=== PATIENT | female | born 1945 | race Hispanic/Latino ===

== ENCOUNTER 2018-04-23 22:31 | Emergency (ER) | payer MEDICARE ==
[2018-04-23] MEDS ORDERED: Ibuprofen 600 MG TAB ONE (22:51)
[2018-04-23] MEDS ORDERED: HYDROcodone/Acetaminophen 5/325 mg Tablet ONE (22:51)
--- NOTE | 2018-04-24 00:08 | RAD ---
TWO VIEWS RIGHT HIP 04/23/18 HISTORY: Trauma. Right hip pain. FINDINGS: There is no evidence of a fracture or dislocation. Mild degenerative changes are seen at the pubic sy mphysis. IMPRESSION: No acute osseous abnormality. POS: [facility]
--- NOTE | 2018-04-24 00:13 | RAD ---
FOUR VIEWS RIGHT KNEE: 04/23/18 HISTORY: Trauma, right knee pain. FINDINGS: There is tricompartment osteophytosis. There is narrowing of the medial joint compartment. No fractur e or dislocation is seen. There is a moderate sized joint effusion in a suprapatellar location. Vascu lar calcifications are seen posterior to the knee. IMPRESSION: 1. Osteoarthritis. 2. Moderate sized joint effusion. If there is concern for internal derangement, MRI right knee o n nonemergent basis is recommended. POS: [facility]
--- NOTE | 2018-04-24 00:16 | RAD ---
SUNRISE VIEW RIGHT KNEE: 04/23/18 HISTORY: Fell, right knee pain. FINDINGS/IMPRESSION: Osteophytosis is seen involving the patellofemoral joint with subchondral cystic changes seen. Please see four views right knee also obtained on this date for further details. POS: [facility]
--- NOTE | 2018-04-24 13:55 | RAD ---
THREE VIEWS RIGHT ANKLE: 04/23/18 HISTORY: Trauma, right ankle pain. FINDINGS: The ankle mortise is congruent. No fracture or dislocation is seen. A plantar calcaneal enthesophyte is identified. IMPRESSION: No acute osseous abnormality. POS: [facility]
== END 2018-04-24 00:24 | disposition home or self-care (01) ==
LOC: SCSER 22:31
DX: M25.461 Effusion, right knee (principal); M25.571 Pain in right ankle and joints of right foot; M25.551 Pain in right hip; I10 Essential (primary) hypertension; E11.9 Type 2 diabetes mellitus without complications; E03.9 Hypothyroidism, unspecified; Z79.899 Other long term (current) drug therapy; W19.XXXA Unspecified fall, initial encounter

== ENCOUNTER 2018-04-26 23:21 | Emergency (ER) | payer MEDICARE ==
[2018-04-27 00:35] LABS: INR-International Normal Ratio 1.1; PTT 25.9 SEC (22.9-36.1)
[2018-04-27 00:44] LABS: Band 2 % (5-11); Hemoglobin 11.7 g/dL (12.0-16.0); Lymphocytes 7 % (21-51); MDiff Complete? YES; Mean Corpuscular HGB CONC 35.2 g/dL (32.0-36.0); Mean Corpuscular Volume 85.1 fL (78.0-98.0); Mean Platelet Volume 10.9 fL (7.4-10.4); Monocytes 7 % (0-10); Neutrophil 84 % (42-75); Platelet Count 203 thou/uL (130-400); RBC Distribution Width 14.3 % (11.5-14.5); Red Blood Cell (RBC) Count 3.91 mill/uL (4.20-5.40); White Blood Cell (WBC) Count 14.5 thou/uL (4.8-10.8)
[2018-04-27 00:45] LABS: ALT (SGPT) 19 U/L (8-55); AST (SGOT) 26 U/L (5-34); Alkaline Phosphatase 73 U/L (40-150); Anion Gap 16 mmol/L (10-20); BUN (Urea Nitrogen) 36 mg/dL (9.8-20.1); Bilirubin, Total 0.9 mg/dL (0.2-1.2); Calc. Creatinine Clearance 0 mL/min (70-130); Calcium 10.2 mg/dL (7.8-10.44); Carbon Dioxide 26 mmol/L (23-31); Chloride 96 mmol/L (98-107); Estimated GFR-MDRD 51; Glucose 292 mg/dL (83-110); Potassium 3.7 mmol/L (3.5-5.1); Sodium 134 mmol/L (136-145)
--- NOTE | 2018-04-27 09:10 | CT ---
PRELIMINARY REPORT/[facility]/EMERGENTY AFTER-HOURS PROCEDURE CT Head Without Intravenous Contrast EXAM DATE/TIME: 04/27/2018 12:16 AM CLINICAL HISTORY: 72 years old, female; Signs and symptoms; Weakness, extremity; Right; Patient HX: Fall three days ago with residual right sided weakness TECHNIQUE: Axial computed tomography images of the head/brain without intravenous contrast. All CT scans at this facility use at least one of these dose optimization techniques: automated expos ure control; mA and/or kV adjustment per patient size (includes targeted exams where dose is matched to clinical indication); or iterative reconstruction. COMPARISON: No relevant prior studies available. FINDINGS: Brain: No evidence of acute intracranial hemorrhage, extraxial fluid or midline shift. Mild low densi ty changes within the white matter bilaterally. Cerebellum atrophic; otherwise, posterior fossa struc tures within normal limits. Ventricles: Mild prominence of the cerebral sulci and ventricles. Bones/joints: Normal. No acute fracture. Sinuses: Normal as visualized. No acute sinusitis. Mastoid air cells: Normal as visualized. No mastoid effusion. Soft tissues: Normal. IMPRESSION: 1. No evidence of acute intracranial hemorrhage, extraxial fluid or midline shift. 2. Mild cerebral atrophy. 3. 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 Thank you for allowing us to participate in the care of your patient. Dictated and Authenticated by: Chris Browning MD 04/27/2018 1:06 AM Central Time ([place] & [place]) FINAL REPORT CT HEAD WITHOUT CONTRAST: No acute intracranial abnormality. I am in agreement with the preliminary report. Code QA. POS: [facility]
== END 2018-04-27 01:53 | disposition home or self-care (01) ==
LOC: SCSER 23:21
DX: R53.1 Weakness (principal); R51 Headache; T38.0X5A Adverse effect of glucocorticoids and synthetic analogues, initial encounter; D64.9 Anemia, unspecified; M25.561 Pain in right knee; E11.65 Type 2 diabetes mellitus with hyperglycemia; D72.829 Elevated white blood cell count, unspecified; I10 Essential (primary) hypertension; E03.9 Hypothyroidism, unspecified
CPT/HCPCS: 36415; 36416; 70450; 80053; 85025; 85610; 85730; 93005

== ENCOUNTER 2018-05-02 10:55 | Outpatient (CLI) | payer MEDICARE ==
--- NOTE | 2018-05-02 16:07 | ULT ---
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 COMPARISON: None. TECHNIQUE: Goddard-scale, color-flow, Doppler imaging, and spectral wave-form analysis was performed of the carotid and vertebral arteries. FINDINGS: RIGHT CAROTID: No significant atherosclerotic disease. Peak systolic velocity of the common carotid artery is 81 cm per second. Peak systolic velocity of the internal carotid artery is 71 cm per seco nd. The systolic ICA to CCA ratio is 0.9. LEFT CAROTID: No significant atherosclerotic disease. Peak systolic velocity of the common carotid artery is 88 cm per second. Peak systolic velocity of the internal carotid artery is 121 cm per seco nd. The systolic ICA to CCA ratio is 1.3. There is elevation of the peak systolic velocity of both external carotid arteries, measuring 150 cm per second. Antegrade flow in the right and left vertebral arteries. IMPRESSION: No sonographic evidence of hemodynamically significant stenosis. POS: [facility]
== END 2018-05-02 10:56 | disposition home or self-care (01) ==
LOC: BICULT 10:55
PROVIDERS: ATTEND Family Medicine
DX: I66.02 Occlusion and stenosis of left middle cerebral artery (principal); D64.9 Anemia, unspecified
CPT/HCPCS: 93880

== ENCOUNTER 2019-08-19 13:43 | Outpatient (CLI) | payer MEDICARE ==
--- NOTE | 2019-08-19 14:25 | MMO ---
Bilateral MAMMO Bilat Screen [facility]. CLINICAL HISTORY: Patient is 73 years old and is seen for screening. The patient has no family history of breast cancer. The patient has no personal history of cancer. VIEWS: The views performed were: bilateral craniocaudal with tomosynthesis and bilateral mediolateral oblique with tomosynthesis. FILMS COMPARED: The present examination has been compared to prior imaging studies performed at [facility] on 04/28/2014, 05/24/2015, 05/28/2016 and 05/14/2017. This study has been interpreted with the assistance of computer-aided detection. MAMMOGRAM FINDINGS: There are scattered fibroglandular densities. There are no suspicious masses, suspicious calcifications, or new areas of architectural distortion. IMPRESSION: THERE IS NO MAMMOGRAPHIC EVIDENCE OF MALIGNANCY. A ROUTINE FOLLOW-UP MAMMOGRAM IN 1 YEAR IS RECOMMENDED. THE RESULTS OF THIS EXAM WERE SENT TO THE PATIENT. ACR BI-RADS Category 1 - Negative MAMMOGRAPHY NOTE: 1. A negative mammogram report should not delay a biopsy if a dominant of clinically suspicious mass is present. 2. Approximately 10% to 15% of breast cancers are not detected by mammography. 3. Adenosis and dense breasts may obscure an underlying neoplasm. Reported by: KATRIN ABREU MD Electonically Signed: [id number]
== END 2019-08-19 13:44 | disposition home or self-care (01) ==
LOC: BICMAMMO 13:43
PROVIDERS: ATTEND Family Medicine
DX: Z12.31 Encounter for screening mammogram for malignant neoplasm of breast (principal)
CPT/HCPCS: 77063; 77067

== ENCOUNTER 2021-04-08 18:52 | Emergency (ER) | payer OTHER, MEDICARE ==
[2021-04-08] MEDS ORDERED: Acetaminophen 500 MG TAB ONE ×2 (19:32→19:37)
== END 2021-04-08 21:55 | disposition home or self-care (01) ==
LOC: ERS 18:52
DX: S00.03XA Contusion of scalp, initial encounter (principal); S80.02XA Contusion of left knee, initial encounter; I10 Essential (primary) hypertension; E11.9 Type 2 diabetes mellitus without complications; E03.9 Hypothyroidism, unspecified; W01.0XXA Fall on same level from slipping, tripping and stumbling without subsequent striking against object, initial encounter
CPT/HCPCS: 70450; 72125; 93005

== ENCOUNTER 2021-06-26 08:56 | Outpatient (CLI) | payer MEDICARE | END 2021-06-26 08:57 | disposition home or self-care (01) | LOC: BICULT 08:56 | PROVIDERS: ATTEND Internal Medicine Nephrology | DX: N18.30 Chronic kidney disease, stage 3 unspecified (principal) | CPT/HCPCS: 76770 ==

== ENCOUNTER 2022-06-13 15:27 | Inpatient (IN) | payer MEDICARE ==
[2022-06-13 16:42] LABS: #Lymphocytes 0.4 thou/uL (1.20-3.40); #Monocytes 0.2 thou/uL (0.11-0.59); #Neutrophils 4.6 thou/uL (1.40-6.50); %Eosinophils 0.1 % (0.0-10.0); %Lymphocytes 8.6 % (21.0-51.0); %Monocytes 3.3 % (0.0-10.0); Hemoglobin 12.8 g/dL (12.0-16.0); Mean Corpuscular Hemoglobin 34.4 pg (27.0-31.0); Mean Platelet Volume 8.4 fL (7.4-10.4); Platelet Count 204 10x3/uL (130-400); RBC Distribution Width 14.1 % (11.5-14.5); Red Blood Cell (RBC) Count 3.72 mill/uL (4.20-5.40); White Blood Cell (WBC) Count 5.2 10x3/uL (4.8-10.8)
[2022-06-13 17:09] LABS: ALT (SGPT) 36 U/L (8-55); AST (SGOT) 51 U/L (5-34); Albumin 3.6 g/dL (3.4-4.8); Alkaline Phosphatase 64 U/L (40-110); Anion Gap 15 mmol/L (10-20); BUN (Urea Nitrogen) 18 mg/dL (9.8-20.1); Bilirubin, Total 1.6 mg/dL (0.2-1.2); Calc. Creatinine Clearance 0 mL/min (70-130); Calcium 9.5 mg/dL (7.8-10.44); Carbon Dioxide 22 mmol/L (23-31); Chloride 91 mmol/L (98-107); Estimated GFR 33; Globulin 3.2 g/dL (2.4-3.5); Glucose 186 mg/dL (83-110); Potassium 4.4 mmol/L (3.5-5.1); Protein, Total 6.8 g/dL (5.8-8.1); Sodium 124 mmol/L (136-145)
[2022-06-13 17:24] LABS: CKMB 16.8 ng/mL (0-6.6)
[2022-06-13 17:31] LABS: Bacteria/HPF 4+ HPF (None Seen); Bilirubin Negative (Negative); Blood, Urine Negative (Negative); Clarity Turbid (Clear); Glucose, Urine (Dipstick) Normal (Negative); Ketone, Urine Negative (Negative); Leukocyte Negative Leu/uL (Negative); Nitrite Negative (Negative); Protein, Urine (Dipstick) 200 mg/dL (Neg-Trace); RBC/HPF None Seen HPF (0-3); Squamous Epithelial None Seen HPF (0-3); WBC/HPF 0-3 HPF (0-3); pH, Urine 7.5 (5.0-9.0)
[2022-06-13] MEDS ORDERED: Insulin Regular 300 UNITS/3 ML VIAL SC PRN ×2 (19:20)
[2022-06-13] MEDS ORDERED: Ondansetron ODT 4 MG TAB PO PRN (19:20)
[2022-06-13] MEDS ORDERED: Dextrose 50% Abboject 50 ML SYRINGE SLOW IVP PRN (19:20)
[2022-06-13] MEDS ORDERED: Dextrose 5% in Water 1,000 ML IV PRN (19:20)
[2022-06-13] MEDS ORDERED: Ondansetron PF 4 MG/2 ML Vial IVP PRN (19:20)
[2022-06-13] MEDS ORDERED: Acetaminophen 325 MG TAB PO PRN (19:20)
[2022-06-13 20:03] LABS: Magnesium 1.6 mg/dL (1.6-2.6); Phosphorus 3.3 mg/dL (2.3-4.7)
[2022-06-13 21:05] LABS: Anion Gap 15 mmol/L (10-20); BUN (Urea Nitrogen) 16 mg/dL (9.8-20.1); Calc. Creatinine Clearance 0 mL/min (70-130); Calcium 9.1 mg/dL (7.8-10.44); Carbon Dioxide 24 mmol/L (23-31); Chloride 92 mmol/L (98-107); Estimated GFR 37; Glucose 144 mg/dL (83-110); Sodium 127 mmol/L (136-145)
[2022-06-13] MEDS ORDERED: Acetaminophen 325 MG TAB ONE (22:26)
[2022-06-13] MEDS ORDERED: Ondansetron PF 4 MG/2 ML Vial ONE (22:37)
[2022-06-14 01:00] VITALS: BMI 19.1
[2022-06-14 04:30] LABS: #Lymphocytes 1.1 thou/uL (1.20-3.40); #Monocytes 0.4 thou/uL (0.11-0.59); #Neutrophils 3.5 thou/uL (1.40-6.50); %Basophils 0.3 % (0.0-1.0); %Eosinophils 0.2 % (0.0-10.0); %Lymphocytes 21.3 % (21.0-51.0); %Monocytes 8.6 % (0.0-10.0); %Neutrophils 69.6 % (42.0-75.0); Hemoglobin 11.9 g/dL (12.0-16.0); Mean Corpuscular HGB CONC 34.4 g/dL (32.0-36.0); Mean Corpuscular Hemoglobin 35.4 pg (27.0-31.0); Mean Platelet Volume 8.4 fL (7.4-10.4); Platelet Count 161 10x3/uL (130-400); RBC Distribution Width 13.9 % (11.5-14.5); Red Blood Cell (RBC) Count 3.36 mill/uL (4.20-5.40); White Blood Cell (WBC) Count 5.1 10x3/uL (4.8-10.8)
[2022-06-14 04:53] LABS: Anion Gap 12 mmol/L (10-20); BUN (Urea Nitrogen) 14 mg/dL (9.8-20.1); Calc. Creatinine Clearance 26 mL/min (70-130); Calcium 8.6 mg/dL (7.8-10.44); Carbon Dioxide 21 mmol/L (23-31); Chloride 96 mmol/L (98-107); Estimated GFR 42; Glucose 114 mg/dL (83-110); Potassium 4.1 mmol/L (3.5-5.1); Sodium 125 mmol/L (136-145)
[2022-06-14] MEDS: Levothyroxine Sodium 25 MCG TAB PO SCH (05:54)
[2022-06-14] MEDS ORDERED: Levothyroxine Sodium 88 MCG TAB PO SCH (06:00)
[2022-06-14] MEDS ORDERED: Magnesium 2 GM/50 ML(in water) 2 GM in Premix Bag 1 BAG IVPB SCH (09:30)
[2022-06-14] MEDS: Alogliptin 25 MG TAB PO SCH (10:09)
[2022-06-14] MEDS: Amlodipine 10 MG TAB PO SCH (10:09)
[2022-06-14 10:30] LABS: Anion Gap 11 mmol/L (10-20); BUN (Urea Nitrogen) 14 mg/dL (9.8-20.1); Calc. Creatinine Clearance 27 mL/min (70-130); Calcium 8.7 mg/dL (7.8-10.44); Carbon Dioxide 22 mmol/L (23-31); Chloride 96 mmol/L (98-107); Estimated GFR 44; Glucose 109 mg/dL (83-110); Potassium 4.1 mmol/L (3.5-5.1); Sodium 125 mmol/L (136-145)
[2022-06-14 17:33] LABS: Anion Gap 12 mmol/L (10-20); BUN (Urea Nitrogen) 13 mg/dL (9.8-20.1); Calc. Creatinine Clearance 25 mL/min (70-130); Calcium 8.8 mg/dL (7.8-10.44); Carbon Dioxide 23 mmol/L (23-31); Chloride 94 mmol/L (98-107); Estimated GFR 40; Glucose 151 mg/dL (83-110); Potassium 4.3 mmol/L (3.5-5.1); Sodium 125 mmol/L (136-145)
[2022-06-14] MEDS: Amiodarone 200 MG TAB PO SCH (19:52)
[2022-06-14] MEDS: Atorvastatin Calcium 20 MG TAB PO SCH (19:52)
[2022-06-15 04:50] LABS: Anion Gap 14 mmol/L (10-20); BUN (Urea Nitrogen) 12 mg/dL (9.8-20.1); Calc. Creatinine Clearance 26 mL/min (70-130); Calcium 8.7 mg/dL (7.8-10.44); Carbon Dioxide 18 mmol/L (23-31); Chloride 95 mmol/L (98-107); Estimated GFR 41; Glucose 153 mg/dL (83-110); Sodium 123 mmol/L (136-145)
[2022-06-15 05:35] LABS: #Lymphocytes 0.6 thou/uL (1.20-3.40); #Monocytes 0.2 thou/uL (0.11-0.59); #Neutrophils 4.1 thou/uL (1.40-6.50); %Basophils 0.4 % (0.0-1.0); %Eosinophils 0.2 % (0.0-10.0); %Lymphocytes 12.9 % (21.0-51.0); %Monocytes 3.6 % (0.0-10.0); %Neutrophils 82.9 % (42.0-75.0); Hemoglobin 11.9 g/dL (12.0-16.0); MDiff Complete? YES; Mean Corpuscular HGB CONC 34.6 g/dL (32.0-36.0); Mean Corpuscular Hemoglobin 35.5 pg (27.0-31.0); Mean Platelet Volume 9.8 fL (7.4-10.4); Platelet Count 105 10x3/uL (130-400); Platelet Morphology Comment Appears Decreased; Red Blood Cell (RBC) Count 3.35 mill/uL (4.20-5.40)
[2022-06-15] MEDS: Levothyroxine Sodium 25 MCG TAB PO SCH (05:42)
[2022-06-15] MEDS: Levothyroxine Sodium 112 MCG TAB PO SCH (05:42)
[2022-06-15 08:00] LABS: Anion Gap 12 mmol/L (10-20); BUN (Urea Nitrogen) 14 mg/dL (9.8-20.1); Calc. Creatinine Clearance 26 mL/min (70-130); Calcium 8.9 mg/dL (7.8-10.44); Carbon Dioxide 24 mmol/L (23-31); Chloride 95 mmol/L (98-107); Estimated GFR 42; Glucose 121 mg/dL (83-110); Potassium 3.7 mmol/L (3.5-5.1); Sodium 127 mmol/L (136-145)
[2022-06-15] MEDS ORDERED: glipiZIDE 5 MG TAB PO SCH (10:15)
[2022-06-15] MEDS: Alogliptin 25 MG TAB PO SCH (10:33)
[2022-06-15] MEDS: Amlodipine 10 MG TAB PO SCH (10:34)
[2022-06-15] MEDS ORDERED: cefTRIAXone Sodium 1,000 MG in Syringe 0 ML IVPB SCH (10:45)
[2022-06-15] MEDS: cefTRIAXone\\ROCEPHIN 1 GM in Sodium Chloride 0.9% 100 ML IVPB SCH (13:04)
[2022-06-15] MEDS: hydrALAZINE 25 MG TAB PO PRN (18:30)
[2022-06-15] MEDS: Amiodarone 200 MG TAB PO SCH (21:34)
[2022-06-15] MEDS: Atorvastatin Calcium 20 MG TAB PO SCH (21:35)
[2022-06-16 04:30] LABS: #Lymphocytes 0.8 thou/uL (1.20-3.40); #Monocytes 0.3 thou/uL (0.11-0.59); #Neutrophils 4.5 thou/uL (1.40-6.50); %Basophils 0.5 % (0.0-1.0); %Eosinophils 0.3 % (0.0-10.0); %Lymphocytes 13.6 % (21.0-51.0); %Monocytes 4.6 % (0.0-10.0); %Neutrophils 80.9 % (42.0-75.0); Hemoglobin 13.3 g/dL (12.0-16.0); Mean Corpuscular HGB CONC 35.3 g/dL (32.0-36.0); Mean Corpuscular Hemoglobin 35.9 pg (27.0-31.0); Mean Platelet Volume 7.9 fL (7.4-10.4); Platelet Count 206 10x3/uL (130-400); Red Blood Cell (RBC) Count 3.72 mill/uL (4.20-5.40); White Blood Cell (WBC) Count 5.5 10x3/uL (4.8-10.8)
[2022-06-16 05:03] LABS: Anion Gap 15 mmol/L (10-20); BUN (Urea Nitrogen) 15 mg/dL (9.8-20.1); Calc. Creatinine Clearance 23 mL/min (70-130); Calcium 9.4 mg/dL (7.8-10.44); Carbon Dioxide 25 mmol/L (23-31); Chloride 93 mmol/L (98-107); Estimated GFR 36; Glucose 170 mg/dL (83-110); Potassium 3.5 mmol/L (3.5-5.1); Sodium 129 mmol/L (136-145)
[2022-06-16] MEDS: Levothyroxine Sodium 112 MCG TAB PO SCH (06:20)
[2022-06-16] MEDS: Amlodipine 10 MG TAB PO SCH (09:45)
[2022-06-16] MEDS: Alogliptin 25 MG TAB PO SCH (09:46)
[2022-06-16] MEDS: glipiZIDE 5 MG TAB PO SCH (09:46)
[2022-06-16] MEDS: cefTRIAXone\\ROCEPHIN 1 GM in Sodium Chloride 0.9% 100 ML IVPB SCH (12:56)
[2022-06-16] MEDS: Heparin 5,000 UNITS/ML VIAL SC SCH (20:47)
[2022-06-16] MEDS: Amiodarone 200 MG TAB PO SCH (20:47)
[2022-06-16] MEDS: hydrALAZINE 25 MG TAB PO PRN (20:47)
[2022-06-16] MEDS: Atorvastatin Calcium 20 MG TAB PO SCH (20:47)
[2022-06-16 21:23] LABS: Bacteria/HPF 4+ HPF (None Seen); Bilirubin Negative (Negative); Blood, Urine Trace (Negative); CAUTI Indications for Culture Dysuria,urgency,freq; Clarity Turbid (Clear); Glucose, Urine (Dipstick) Normal (Negative); Ketone, Urine Negative (Negative); Leukocyte 500 Leu/uL (Negative); Nitrite Negative (Negative); Protein, Urine (Dipstick) 100 mg/dL (Neg-Trace); Renal Epithelial 0-3 HPF (None Seen); Specific Gravity, Urine 1.009 (1.002-1.036); Squamous Epithelial 0-3 HPF (0-3); Transitional Epithelial 0-3 HPF (None Seen); WBC/HPF 21-50 HPF (0-3); pH, Urine 6.5 (5.0-9.0)
[2022-06-16 21:25] LABS: Urine Culture Reflex Yes Yes
[2022-06-17] MEDS ORDERED: FLU VACC QS2022-23(65YR UP)/PF 240 MCG/0.7 ML SYRINGE IM ONE (03:30)
[2022-06-17 05:18] LABS: #Lymphocytes 1.2 thou/uL (1.20-3.40); #Monocytes 0.2 thou/uL (0.11-0.59); #Neutrophils 2.6 thou/uL (1.40-6.50); %Basophils 0.2 % (0.0-1.0); %Eosinophils 0.2 % (0.0-10.0); %Monocytes 5.9 % (0.0-10.0); %Neutrophils 64.8 % (42.0-75.0); Hemoglobin 10.6 g/dL (12.0-16.0); Mean Corpuscular Hemoglobin 36.1 pg (27.0-31.0); Mean Platelet Volume 8.3 fL (7.4-10.4); Platelet Count 152 10x3/uL (130-400); RBC Distribution Width 13.9 % (11.5-14.5); Red Blood Cell (RBC) Count 2.93 mill/uL (4.20-5.40)
[2022-06-17] MEDS: Levothyroxine Sodium 112 MCG TAB PO SCH (05:19)
[2022-06-17 05:21] LABS: ALT (SGPT) 23 U/L (8-55); AST (SGOT) 34 U/L (5-34); Albumin 2.7 g/dL (3.4-4.8); Alkaline Phosphatase 47 U/L (40-110); Anion Gap 12 mmol/L (10-20); BUN (Urea Nitrogen) 14 mg/dL (9.8-20.1); Bilirubin, Total 0.8 mg/dL (0.2-1.2); Calc. Creatinine Clearance 25 mL/min (70-130); Calcium 8.9 mg/dL (7.8-10.44); Carbon Dioxide 24 mmol/L (23-31); Chloride 99 mmol/L (98-107); Estimated GFR 39; Globulin 2.4 g/dL (2.4-3.5); Phosphorus 3.4 mg/dL (2.3-4.7); Potassium 3.8 mmol/L (3.5-5.1); Protein, Total 5.1 g/dL (5.8-8.1); Sodium 131 mmol/L (136-145)
[2022-06-17 05:24] LABS: Glucose 56 mg/dL (83-110)
[2022-06-17] MEDS: Alogliptin 25 MG TAB PO SCH (09:24)
[2022-06-17] MEDS: glipiZIDE 5 MG TAB PO SCH (09:29)
[2022-06-17] MEDS: Heparin 5,000 UNITS/ML VIAL SC SCH ×2 (09:29→21:33)
[2022-06-17] MEDS: Amlodipine 10 MG TAB PO SCH (09:29)
[2022-06-17] MEDS: cefTRIAXone\\ROCEPHIN 1 GM in Sodium Chloride 0.9% 100 ML IVPB SCH (11:52)
[2022-06-17] MEDS ORDERED: Bisacodyl 10 MG SUPP PR SCH (14:28)
[2022-06-17] MEDS: Atorvastatin Calcium 20 MG TAB PO SCH (21:33)
[2022-06-17] MEDS: Amiodarone 200 MG TAB PO SCH (21:33)
[2022-06-17] MEDS ORDERED: Docusate 100 MG CAP PO PRN (22:24)
[2022-06-18 04:55] LABS: #Lymphocytes 0.7 thou/uL (1.20-3.40); #Monocytes 0.2 thou/uL (0.11-0.59); #Neutrophils 3.9 thou/uL (1.40-6.50); %Basophils 0.7 % (0.0-1.0); %Eosinophils 0.2 % (0.0-10.0); %Lymphocytes 14.5 % (21.0-51.0); %Monocytes 3.9 % (0.0-10.0); %Neutrophils 80.7 % (42.0-75.0); Hemoglobin 10.2 g/dL (12.0-16.0); Mean Corpuscular HGB CONC 35.7 g/dL (32.0-36.0); Mean Corpuscular Hemoglobin 36.8 pg (27.0-31.0); Mean Platelet Volume 8.1 fL (7.4-10.4); Platelet Count 154 10x3/uL (130-400); Red Blood Cell (RBC) Count 2.76 mill/uL (4.20-5.40); White Blood Cell (WBC) Count 4.8 10x3/uL (4.8-10.8)
[2022-06-18 05:17] LABS: Anion Gap 13 mmol/L (10-20); BUN (Urea Nitrogen) 15 mg/dL (9.8-20.1); Calc. Creatinine Clearance 25 mL/min (70-130); Calcium 8.9 mg/dL (7.8-10.44); Carbon Dioxide 23 mmol/L (23-31); Chloride 99 mmol/L (98-107); Estimated GFR 39; Glucose 72 mg/dL (83-110); Potassium 3.7 mmol/L (3.5-5.1); Sodium 131 mmol/L (136-145)
[2022-06-18] MEDS: Levothyroxine Sodium 112 MCG TAB PO SCH (06:18)
[2022-06-18] MEDS: Amlodipine 10 MG TAB PO SCH (09:44)
[2022-06-18] MEDS: Heparin 5,000 UNITS/ML VIAL SC SCH ×2 (09:44→21:08)
[2022-06-18 13:18] LABS: Bacteria/HPF None Seen HPF (None Seen); Bilirubin Negative (Negative); Blood, Urine Negative (Negative); Clarity Clear (Clear); Glucose, Urine (Dipstick) 50 mg/dL (Negative); Ketone, Urine Negative (Negative); Leukocyte Negative Leu/uL (Negative); Nitrite Negative (Negative); Protein, Urine (Dipstick) 100 mg/dL (Neg-Trace); RBC/HPF 0-3 HPF (0-3); Specific Gravity, Urine 1.016 (1.002-1.036); Squamous Epithelial 0-3 HPF (0-3); Urobilinogen Normal mg/dL (Less than 2); pH, Urine 6.5 (5.0-9.0)
[2022-06-18] MEDS: cefTRIAXone\\ROCEPHIN 1 GM in Sodium Chloride 0.9% 100 ML IVPB SCH (15:43)
[2022-06-18] MEDS: Docusate 100 MG CAP PO SCH (21:08)
[2022-06-18] MEDS: Amiodarone 200 MG TAB PO SCH (21:09)
[2022-06-18] MEDS: Atorvastatin Calcium 20 MG TAB PO SCH (21:09)
[2022-06-19] MEDS: Levothyroxine Sodium 112 MCG TAB PO SCH (06:19)
[2022-06-19 08:01] LABS: #Lymphocytes 0.7 thou/uL (1.20-3.40); #Monocytes 0.3 thou/uL (0.11-0.59); #Neutrophils 3.1 thou/uL (1.40-6.50); %Basophils 0.8 % (0.0-1.0); %Eosinophils 0.3 % (0.0-10.0); %Lymphocytes 16.9 % (21.0-51.0); %Monocytes 6.4 % (0.0-10.0); %Neutrophils 75.6 % (42.0-75.0); Hemoglobin 10.3 g/dL (12.0-16.0); Mean Corpuscular HGB CONC 35.2 g/dL (32.0-36.0); Mean Corpuscular Hemoglobin 36.1 pg (27.0-31.0); Mean Platelet Volume 7.6 fL (7.4-10.4); Platelet Count 154 10x3/uL (130-400); Red Blood Cell (RBC) Count 2.85 mill/uL (4.20-5.40); White Blood Cell (WBC) Count 4.1 10x3/uL (4.8-10.8)
[2022-06-19 08:37] LABS: ALT (SGPT) 20 U/L (8-55); AST (SGOT) 36 U/L (5-34); Albumin 2.7 g/dL (3.4-4.8); Alkaline Phosphatase 47 U/L (40-110); Anion Gap 12 mmol/L (10-20); BUN (Urea Nitrogen) 12 mg/dL (9.8-20.1); Bilirubin, Total 0.6 mg/dL (0.2-1.2); Calc. Creatinine Clearance 28 mL/min (70-130); Calcium 8.5 mg/dL (7.8-10.44); Carbon Dioxide 23 mmol/L (23-31); Chloride 98 mmol/L (98-107); Estimated GFR 46; Globulin 2.5 g/dL (2.4-3.5); Glucose 112 mg/dL (83-110); Potassium 3.5 mmol/L (3.5-5.1); Protein, Total 5.2 g/dL (5.8-8.1); Sodium 129 mmol/L (136-145)
[2022-06-19] MEDS: Heparin 5,000 UNITS/ML VIAL SC SCH ×2 (09:51→20:26)
[2022-06-19] MEDS: Amlodipine 10 MG TAB PO SCH (09:51)
[2022-06-19] MEDS: Docusate 100 MG CAP PO SCH ×2 (09:52→20:26)
[2022-06-19] MEDS ORDERED: Bisacodyl 5 MG TAB PO SCH (12:25)
[2022-06-19] MEDS ORDERED: Metoclopramide HCl 10 MG TAB PO SCH (12:39)
[2022-06-19] MEDS ORDERED: Senokot 8.6 MG TAB PO SCH (12:41)
[2022-06-19] MEDS: cefTRIAXone\\ROCEPHIN 1 GM in Sodium Chloride 0.9% 100 ML IVPB SCH (12:48)
[2022-06-19] MEDS: Amiodarone 200 MG TAB PO SCH (20:26)
[2022-06-19] MEDS: Atorvastatin Calcium 20 MG TAB PO SCH (20:27)
[2022-06-20 04:32] LABS: #Lymphocytes 0.9 thou/uL (1.20-3.40); #Monocytes 0.3 thou/uL (0.11-0.59); %Basophils 0.3 % (0.0-1.0); %Eosinophils 0.4 % (0.0-10.0); %Lymphocytes 17.1 % (21.0-51.0); %Monocytes 5.5 % (0.0-10.0); %Neutrophils 76.8 % (42.0-75.0); Hemoglobin 10.5 g/dL (12.0-16.0); Mean Corpuscular HGB CONC 34.7 g/dL (32.0-36.0); Mean Corpuscular Hemoglobin 35.8 pg (27.0-31.0); Mean Platelet Volume 8.1 fL (7.4-10.4); Platelet Count 160 10x3/uL (130-400); RBC Distribution Width 13.9 % (11.5-14.5); Red Blood Cell (RBC) Count 2.94 mill/uL (4.20-5.40); White Blood Cell (WBC) Count 5.3 10x3/uL (4.8-10.8)
[2022-06-20 04:55] LABS: Anion Gap 12 mmol/L (10-20); BUN (Urea Nitrogen) 11 mg/dL (9.8-20.1); Calc. Creatinine Clearance 31 mL/min (70-130); Calcium 8.8 mg/dL (7.8-10.44); Carbon Dioxide 25 mmol/L (23-31); Chloride 96 mmol/L (98-107); Estimated GFR 51; Glucose 118 mg/dL (83-110); Potassium 3.9 mmol/L (3.5-5.1); Sodium 129 mmol/L (136-145)
[2022-06-20] MEDS: Levothyroxine Sodium 112 MCG TAB PO SCH (06:36)
[2022-06-20] MEDS ORDERED: Lisinopril 2.5 MG TAB PO SCH (09:00)
[2022-06-20] MEDS ORDERED: NIFEdipine XL 90 MG TAB PO SCH (09:00)
[2022-06-20] MEDS: Docusate 100 MG CAP PO SCH (10:24)
[2022-06-20] MEDS: Heparin 5,000 UNITS/ML VIAL SC SCH (11:29)
[2022-06-20 15:30] VITALS: BP 157/72; TEMP 97.8
[2022-06-20] MEDS ORDERED: Rivaroxaban 15 MG TAB PO SCH (17:00)
== END 2022-06-20 15:33 | disposition home or self-care (01) | DRG 640 ==
LOC: ERS 15:27 → ERHOLD 18:14 → 2NO 06-14 00:08
PROVIDERS: ADMIT Internal Medicine; ATTEND Internal Medicine
DX: E87.1 Hypo-osmolality and hyponatremia (principal); E43 Unspecified severe protein-calorie malnutrition; G93.41 Metabolic encephalopathy; N17.9 Acute kidney failure, unspecified; R64 Cachexia; Z68.1 Body mass index [BMI] 19.9 or less, adult; N39.0 Urinary tract infection, site not specified; Z20.822 Contact with and (suspected) exposure to COVID-19; N18.30 Chronic kidney disease, stage 3 unspecified; I12.9 Hypertensive chronic kidney disease with stage 1 through stage 4 chronic kidney disease, or unspecified chronic kidney disease; E11.22 Type 2 diabetes mellitus with diabetic chronic kidney disease; I48.91 Unspecified atrial fibrillation; I44.0 Atrioventricular block, first degree; B96.20 Unspecified Escherichia coli [E. coli] as the cause of diseases classified elsewhere; K59.00 Constipation, unspecified; Z90.49 Acquired absence of other specified parts of digestive tract; Z79.84 Long term (current) use of oral hypoglycemic drugs; Z79.890 Hormone replacement therapy; Z79.899 Other long term (current) drug therapy; Z79.01 Long term (current) use of anticoagulants; Z88.8 Allergy status to other drugs, medicaments and biological substances; Z74.01 Bed confinement status
CPT/HCPCS: 36415; 36416; 70450; 70551; 71045; 74018; 76770; 80048; 80053; 81001; 81003; 81015; 82553; 83605; 83735; 83880; 83930; 83935; 84100; 84145; 84300; 84443; 84484; 85025; 87040; 87077; 87086; 87186; 93005; 93970; J0696; J1644; J2405; J3475; J3490; Q0162; U0003; U0005